=== PATIENT | female | born 1970 | race Caucasian/White ===

== ENCOUNTER 2018-08-30 12:39 | Emergency (ER) | payer OTHER ==
[2018-08-30 12:58] VITALS: BP 139/78
[2018-08-30] MEDS ORDERED: ALBUTEROL NEB 2.5 MG/3 ML INH STA (14:31)
[2018-08-30] MEDS ORDERED: predniSONE 20 MG TABLET PO STA (14:31)
--- NOTE | 2018-08-30 14:45 | ED Physician Documentation ---
History of Present Illness - Stated complaint Stated Complaint: CONGESTION/DIFF BREATHING - Chief complaint Chief Complaint: Resp - Additonal information Additional information: hx from pt 48 female hx asthnma visiting from [facility] has a cold before she left and also he family here has dogs so inc asthma sx her MDI ran out no leg swelling Review of Systems Constitutional: denies: Fever, Chills Cardiac: denies: Chest pain / pressure Respiratory: reports: Cough, Wheezing. denies: Dyspnea GI: denies: Vomiting Musculoskeletal: denies: Extremity swelling PD PAST MEDICAL HISTORY - Past Medical History Past Medical History: Yes Respiratory: Asthma - Present Medications Home Medications: Ambulatory Orders Medication Instructions Recorded Confirmed Albuterol Sulfate [Proair Hfa 1 08/30/18 Inhaler] Albuterol Sulfate [Proair Hfa 2 puffs INH Q4H PRN #1 inhaler 08/30/18 Inhaler] Citalopram [CeleXA] 1 08/30/18 Fexofenadine HCl [Ivon Allergy] 1 08/30/18 Fluticasone [Flonase] 1 08/30/18 Montelukast [Singulair] 1 08/30/18 predniSONE [Prednisone] 60 mg PO DAILY 5 Days tablet 08/30/18 - Allergies Allergies/Adverse Reactions: Allergies Allergy/AdvReac Type Severity Reaction Status Date / Time Sulfa (Sulfonamide Allergy Rash Verified 08/30/18 12:58 Antibiotics) - Social History Does the pt smoke?: No Smoking Status: Never smoker PD ED PE NORMAL - Vitals Vital signs reviewed: Yes - General General: Alert and oriented X 3 - HEENT HEENT: PERRL - Cardiac Cardiac: RRR - Respiratory Respiratory: No respiratory distress, Clear bilaterally, Other (decreased) - Extremities Extremities: No edema, No calf tenderness / cord - Neuro Neuro: Alert and oriented X 3 Results - Vitals Vitals: Vital Signs - 24 hr 08/30/18 08/30/18 12:56 14:42 Temperature 36.4 C L Heart Rate 78 77 Respiratory 20 18 Rate Blood Pressure 139/78 H O2 Saturation 98 Oxygen O2 Source Room air Departure - Departure Disposition: 01 Home, Self Care Clinical Impression: Acute asthma exacerbation Qualifiers: Asthma severity: unspecified severity Asthma persistence: intermittent Qualified Code(s): J45.21 - Mild intermittent asthma with (acute) exacerbation Condition: Good Instructions: ALBUTEROL Oral Inhaler Prescriptions: Albuterol Sulfate [Proair Hfa Inhaler] 2 puffs INH Q4H PRN #1 inhaler PRN Reason: Shortness Of Air/Wheezing predniSONE [Prednisone] 60 mg PO DAILY 5 Days tablet
== END 2018-08-30 15:27 | disposition home or self-care (01) ==
LOC: ED 12:39
DX: J45.21 Mild intermittent asthma with (acute) exacerbation (principal)
CPT/HCPCS: 94640; 94664; 99283; J7512